=== PATIENT | female | born 1960 | race Caucasian/White ===

== ENCOUNTER 2017-10-22 13:37 | Emergency (ER) | payer OTHER ==
[~2017-10-22] VITALS: Ht 165.1 cm; Wt 79.8 kg
[2017-10-22 13:45] VITALS: Ht 165.1 cm; Wt 79.8 kg
[2017-10-22 14:11] LABS: BASOPHIL % 0.2 % (0-2); PLATELET COUNT 296 x10^3mcL (130-400)
[2017-10-22 14:14] LABS: RED CELL DISTRIBUTION WIDTH 15.1 % (11.5-14.5)
[2017-10-22 14:24] LABS: CALCIUM 9.4 mg/dL (8.5-10.1); CARBON DIOXIDE 27.7 mmol/L (21-32); CHLORIDE SERUM 105 mmol/L (98-107); CREATININE SERUM 0.7 mg/dL (0.6-1.0); GFR1 > 60 mL/min; GLUCOSE SERUM 148 mg/dL (74-106); POTASSIUM SERUM 3.7 mmol/L (3.5-5.1); SODIUM SERUM 140 mmol/L (136-145)
[2017-10-22 15:13] VITALS: BP 164/91
== END 2017-10-22 15:02 | disposition home or self-care (01) ==
LOC: ED 13:37
PROVIDERS: Emergency Medicine
DX: F43.0 Acute stress reaction (principal); I10 Essential (primary) hypertension; G47.00 Insomnia, unspecified; Z88.0 Allergy status to penicillin
CPT/HCPCS: 83880; J2060; J7030; Q0092

== ENCOUNTER 2018-04-20 20:30 | Inpatient (IN) | payer OTHER ==
[~2018-04-20] VITALS: Ht 165.1 cm; Wt 71.8 kg
[2018-04-20 21:33] LABS: PLATELET COUNT 275 x10^3mcL (130-400); RED CELL DISTRIBUTION WIDTH 14.3 % (11.5-14.5)
[2018-04-20 21:36] LABS: UA SPECIFIC GRAVITY >=1.030 (1.005-1.035); microscopic required? YES; urine erythrocyte NEGATIVE (NEGATIVE)
[2018-04-20 21:40] LABS: CALCIUM 9.5 mg/dL (8.5-10.1); CARBON DIOXIDE 27.7 mmol/L (21-32); CHLORIDE SERUM 105 mmol/L (98-107); CREATININE SERUM 0.8 mg/dL (0.6-1.0); GFR1 > 60 mL/min; GLUCOSE SERUM 89 mg/dL (74-106); POTASSIUM SERUM 3.4 mmol/L (3.5-5.1); SODIUM SERUM 142 mmol/L (136-145)
[2018-04-20 21:45] LABS: AMPHETAMINE QUAL UR NONE DETECTED (See below)
[2018-04-20 21:54] LABS: ALBUMIN 4.2 g/dL (3.4-5.0); ALKALINE PHOSPHATASE 95 U/L (46-116); ALT/SGPT 27 U/L (14-59); AST/SGOT 20 U/L (15-37); FREE T4 1.36 ng/dL (0.76-1.46)
[2018-04-20 21:55] LABS: TOTAL PROTEIN, SERUM 8.8 g/dL (6.4-8.2)
[2018-04-21 02:37] VITALS: BP 176/96
[2018-04-21 03:00] VITALS: BP 151/78
[2018-04-21 06:21] LABS: ALBUMIN 3.7 g/dL (3.4-5.0); ALKALINE PHOSPHATASE 88 U/L (46-116); ALT/SGPT 26 U/L (14-59); AST/SGOT 22 U/L (15-37); BILIRUBIN TOTAL 2.35 mg/dL (0.20-1.00); CALCIUM 8.8 mg/dL (8.5-10.1); CARBON DIOXIDE 23.7 mmol/L (21-32); CHLORIDE SERUM 107 mmol/L (98-107); CREATININE SERUM 0.9 mg/dL (0.6-1.0); GFR1 > 60 mL/min; GLUCOSE SERUM 176 mg/dL (74-106); POTASSIUM SERUM 3.5 mmol/L (3.5-5.1); SODIUM SERUM 143 mmol/L (136-145); TOTAL PROTEIN, SERUM 7.1 g/dL (6.4-8.2)
[2018-04-21 08:45] VITALS: BP 126/75
[2018-04-21 14:00] VITALS: BP 126/75
== END 2018-04-21 16:15 | disposition home or self-care (01) | DRG 948 ==
LOC: ED 20:30 → MU 04-21 01:05
PROVIDERS: Emergency Medicine; Internal Medicine
DX: R41.0 Disorientation, unspecified (principal); F33.2 Major depressive disorder, recurrent severe without psychotic features; I10 Essential (primary) hypertension; Z88.0 Allergy status to penicillin; F41.9 Anxiety disorder, unspecified
CPT/HCPCS: 84439; G0480; J7030